=== PATIENT | female | born 1980 | race Caucasian/White ===

== ENCOUNTER 2024-04-13 10:31 | Day surgery (SDC) | payer OTHER, SELFPAY ==
[2024-04-10 10:40] VITALS: BMI 34.0
[2024-04-13] MEDS: LACTATED RINGERS 1000ML 1,000 ML 50 ML IV (10:52)
[2024-04-13 10:57] LABS: Urine Pregnancy, HCG Qual. Negative (Negative)
[2024-04-13 10:58] VITALS: BP 135/78; PULSE 89; RESP 18; TEMP 36.4; O2SAT 99
--- NOTE | 2024-04-13 11:42 | EXP.ANES.CKL ---
[facility] Disclaimer: The information contained in this section may have been updated after the patient was seen, as this information can be updated by other users. Medical History Anxiety and depression History of COVID-19 SVT (supraventricular tachycardia) Surgical History Hx of section Family History Grandmother Breast cancer Social History Smoking Status: Former smoker alcohol intake: current alcohol intake frequency: holidays/special occasions only substance use type: denies use current occupational status: employed Travel in the last 8 weeks: None Have you lived/traveled outside [place] in past 30 days?: No Contact w/someone who lives/traveled outside US past 30 days?: No Exposure to someone with infectious disease in past 14 days?: Yes Do you have a fever (greater than 100.4 F or 38 C)?: No Have you tested positive for COVID-19: No Exposed to someone with COVID-19 in past 14 days?: No Do you have a sore throat?: No Do you have a cough?: No Do you have any weakness?: No Are you experiencing any nausea/vomitting?: No Do you have any diarrhea?: No Are you experiencing any unusual bleeding?: No Do you have any muscle aches/pain?: No Do you have any abdominal pain?: No Are you experiencing loss of taste or smell?: No [facility] Anesthesia Checklist Patient Identification Patient Identification: Arm Band Structural Data Admitted From: Home Planned Operative Procedure/s: Colonoscopy Consent for Planned Operative Procedure(s) Verified: Yes Verified Documents: Surgical Consent and History and Physical NPO Status Verified Time NPO: 00:00 Additional verifications Anesthesia Reactions: No Airway Assessment Mallampati Score:: Class II C-Spine Mobility Assessed: Yes TMJ Mobility Assessed: Yes Dentition: Good Dentition Neurological Assessment Level of Consciousness: Awake, Alert and Appropriate Anesthesia Plan Anesthesia Risk discussed: Yes Anesthesia Plan: Verified ASA Class: II Anesthesia Type: MAC
--- NOTE | 2024-04-13 12:26 | P.HP_ITS ---
History of Present Illness *Admission Date: 04/13/24 *Reason for visit:: Bright red blood per rectum with rectal pain *History of present illness: Mrs. Schwartz is a 43-year-old female who is here for chronic constipation and bright red blood per rectum with rectal bleeding and rectal pain. The examination is deemed medically necessary for diagnostic colonoscopy. The patient has been seen, interviewed and examined prior to the procedure by both myself and the anesthesia provider. [facility] Disclaimer: The information contained in this section may have been updated after the patient was seen, as this information can be updated by other users. Medical History Anxiety and depression History of COVID-19 SVT (supraventricular tachycardia) Surgical History Hx of section Family History Grandmother Breast cancer Social History Smoking Status: Former smoker alcohol intake: current alcohol intake frequency: holidays/special occasions only substance use type: denies use current occupational status: employed Travel in the last 8 weeks: None Have you lived/traveled outside [place] in past 30 days?: No Contact w/someone who lives/traveled outside [place] past 30 days?: No Exposure to someone with infectious disease in past 14 days?: Yes Do you have a fever (greater than 100.4 F or 38 C)?: No Have you tested positive for COVID-19: No Exposed to someone with COVID-19 in past 14 days?: No Do you have a sore throat?: No Do you have a cough?: No Do you have any weakness?: No Are you experiencing any nausea/vomitting?: No Do you have any diarrhea?: No Are you experiencing any unusual bleeding?: No Do you have any muscle aches/pain?: No Do you have any abdominal pain?: No Are you experiencing loss of taste or smell?: No Review of Systems Review of Systems Review of systems (narrative): Negative *Cardiovascular Comments: Negative *Gastrointestinal Comments: Negative *Genitourinary Comments: Negative *Musculoskeletal Comments: Negative *Neurologic Comments: Negative Meds Home Medications and Allergies Home Medications ?Medication ?Instructions ?Recorded ?Confirmed ?Type atenolol 25 mg tablet 25 mg PO DAILY PRN . 03/10/24 04/13/24 History biotin 10,000 mcg capsule 10,000 mcg PO DAILY 03/10/24 04/13/24 History cholecalciferol (vitamin D3) 250 125 mcg PO DAILY 03/10/24 04/13/24 History mcg (10,000 unit) capsule docusate sodium 100 mg capsule 100 mg PO TID 03/10/24 04/13/24 History (Colace) fluoxetine 10 mg capsule (Prozac) 5 mg PO DAILY 03/10/24 04/13/24 History ibuprofen 200 mg capsule 200 mg PO Q6H PRN . 03/10/24 04/13/24 History mecobalamin (vitamin B12) 5,000 5,000 mcg PO DAILY 03/10/24 04/13/24 History mcg chewable tablet norethindrone 1 mg-ethinyl 1 tab PO DAILY 03/10/24 04/13/24 History estradiol 10 mcg (24)-iron 10 mcg(2) tablet (Lo Loestrin Fe) polyethylene glycol 3350 17 17 g PO BID 03/10/24 04/13/24 History gram/dose oral powder (Miralax) miscellaneous creams 04/10/24 04/13/24 History psyllium 1 packet PO BID 04/10/24 04/13/24 History lidocaine 3 %-hydrocortisone 2.5 % 1 applic [place] BID 04/13/24 04/13/24 History (7 gram) rectal gel New Prescriptions to Start Prescriptions: Allergies Allergy/AdvReac Type Severity Reaction Status Date / Time amoxicillin Allergy Hives Verified 04/13/24 10:54 Penicillins Allergy Hives Verified 04/13/24 10:54 Exam Data for Last 24 hours Vital signs and Labs for Last 24 Hours: Temp Pulse Resp BP Pulse Ox O2 Del Method 97.6 F 89 18 135/78 99 Room Air 04/13/24 10:58 04/13/24 10:58 04/13/24 10:58 04/13/24 10:58 04/13/24 10:58 04/13/24 10:58 Laboratory Results - last 24 hr 04/13/24 10:35: Urine HCG, Qual Negative I & O for Last 24 hours: Intake & Output 04/10/24 04/11/24 04/12/24 04/13/24 23:59 23:59 23:59 23:59 Weight 192 lb *Routine HEENT Exam Head: Present normocephalic Eye: Present EOMI and PERRL ENT: Present mucous membranes moist *Routine Neck Exam Neck: Present supple *Routine Respiratory Exam Respiratory: Present CTA bilaterally *Routine Cardiovascular Exam Cardiovascular: Present RRR *Routine Abdominal Exam Abdominal: Present soft and normoactive bowel sounds; Absent tenderness *Routine Rectal Exam Rectal:: deferred *Routine Genitalia Exam Genitalia:: deferred *Routine Extremities Exam Extremities: Absent cyanosis, clubbing or edema *Routine Skin Exam Skin: Present warm; Absent rash *Routine Neurological Exam Neurological: Present alert and oriented X3 Assessment and Plan *Assessment and plan (1) Bright red blood per rectum: Status: Acute Category: Medical Code(s): K62.5 - Hemorrhage of anus and rectum (2) Rectal pain: Status: Acute Category: Medical Code(s): K62.89 - Other specified diseases of anus and rectum (3) Chronic constipation: Status: Acute Category: Medical Code(s): K59.09 - Other constipation Plan A/P: 1. Bright red rectal bleeding with rectal pain and chronic constipation is the preprocedural diagnosis. The patient will be anesthetized/sedated using MAC sedation. The patient has been seen and examined. Cardiac and lung assessment prior to the examination is stable. Proceed with planned diagnostic colonoscopy
[2024-04-13 12:27] VITALS: O2SAT 100
--- NOTE | 2024-04-13 12:42 | HMH.PROCNOTE ---
[facility] Procedure Note Date: 04/13/24 Time: 12:58 Procedure Note:: Colonoscopy Procedure Report: Colonoscopy with monopolar ablation/coagulation of internal hemorrhoids Endoscopist: Maynor Culp II, MD Referring physician: Kayode Wayne MD, [address] [facility] [place] [address] Date of Procedure: April 13, 2024 Equipment: Olympus 190 variable stiffness pediatric colonoscope Sedation: MAC sedation Indication: Mrs. Schwartz is a 43-year-old female who is here for diagnostic colonoscopy. She has had chronic constipation. In early March, she had more significant constipation and then developed rectal pain with some rectal bleeding. She had been taking ibuprofen. She felt like razor blades sharp tearing pain when she had a bowel movement. The patient was placed on combined MiraLAX plus Metamucil and nitroglycerin ointment. This has significantly helped. She also does use some stool softeners. The patient reports no significant abdominal pain or unintentional weight loss. She reports no family history of colon cancer. She does get occasional hemorrhoids. Procedure: Prior to the procedure, a history and physical exam was performed, and patient's medications and allergies were reviewed. The risks, benefits and alternatives of the sedation and procedure were discussed with the patient. All questions were answered and informed consent was obtained. The patient was brought to the procedure room. Patient identification and proposed procedure were verified by the physician and the nurse. The patient was placed in a left lateral decubitus position and the scope was passed under direct vision. Throughout the procedure, the patient's blood pressure, pulse, and oxygen saturations were monitored continuously. The colonoscopy was accomplished without difficulty. The patient tolerated the procedure well. Findings: On digital rectal examination there was normal to slightly increased rectal tone. There was a healing anterior midline anal fissure with associated tag. There were no external hemorrhoids. The colonoscope was introduced through the anal canal to the rectum and advanced to the cecum. The ileocecal valve and appendiceal orifice were identified. The scope was advanced a short distance into the ileum which appeared grossly normal. The scope was then withdrawn into the colon. The cecum, ascending, transverse, descending, sigmoid and rectum were grossly normal. There were no mucosal abnormalities identified. Upon retroflexion within the rectum there were grade 2 internal hemorrhoids. 3 columns of hemorrhoids were ablated/coagulated using monopolar force coagulation. The preparation was excellent throughout with [place] Preparation Score of 9 out of 9. The cecal time was 12 minutes. Impression: 1. Normal colonoscopy with intubation of the terminal ileum 2. Primarily healed anterior midline anal fissure with associated tag 3. Grade 2 internal hemorrhoids status post monopolar ablation/coagulation Plan: I would recommend that she continue the combined fiber bowel regimen (MiraLAX plus Metamucil). She can use the nitroglycerin ointment as needed. The patient will not require surveillance colonoscopy again for 10 years by ACS guidelines.
[2024-04-13 13:04] VITALS: BP 98/63; PULSE 88; TEMP 36.1; O2SAT 96
[2024-04-13 13:14] VITALS: BP 121/74; PULSE 86; RESP 18; O2SAT 100
[2024-04-13 13:24] VITALS: BP 122/72; PULSE 75; RESP 18; O2SAT 100
[2024-04-13 13:44] VITALS: BP 122/82; PULSE 79; RESP 18; O2SAT 100
== END 2024-04-13 13:44 | disposition home or self-care (01) ==
PROVIDERS: Visit Provider Internal Medicine Gastroenterology
PROC: 0DJD8ZZ Inspection of Lower Intestinal Tract, Via Natural or Artificial Opening Endoscopic (ICD-10-PCS; CPT 45378; principal; 2024-04-13 12:00)
DX: K62.5 Hemorrhage of anus and rectum (principal); K62.89 Other specified diseases of anus and rectum; K59.09 Other constipation; K59.04 Chronic idiopathic constipation; K60.2 Anal fissure, unspecified; K64.1 Second degree hemorrhoids
CPT/HCPCS: 45388; 81025; J7120